=== PATIENT | female | born 1990 | race Caucasian/White ===

== ENCOUNTER 2021-12-22 19:00 | Emergency (ER) | payer MEDICAID, SELFPAY ==
[2021-12-22 20:52] VITALS: BP 123/66; PULSE 58; RESP 18; TEMP 36.2; O2SAT 99; BMI 29.2
[2021-12-22 21:07] LABS: Appearance Urine Clear; Color Urine Yellow; Glucose Urine UA Negative (Negative); Leukocyte Esterase Urine Negative (Negative); Nitrite Urine Negative (Negative); Urine Blood Negative (Negative); Urine Ketones Negative (Negative); Urine Protein Negative (Neg-Trace)
== END 2021-12-22 22:27 | disposition left against medical advice (07) ==
PROVIDERS: Emergency Provider Emergency Medicine
DX: R10.9 Unspecified abdominal pain (principal)
CPT/HCPCS: 81003; 99282